=== PATIENT | male | born 1970 ===

== ENCOUNTER → 2017-12-06 | Outpatient (REF) | payer BC ==
[2017-12-06 13:33] LABS: ESTIMATED AVERAGE GLUCOSE 120 MG/DL (60-110); HEMOGLOBIN A1c 5.8 %
[2017-12-06 13:48] LABS: TOTAL 25(OH) VITAMIN D 9.7 NG/ML (30.0-100.0)
[2017-12-06 13:49] LABS: ALBUMIN/GLOBULIN RATIO 1.11 (1.00-1.93); ALKALINE PHOSPHATASE 58 U/L (45-117); ALT/SGPT 22 U/L (12-78); ANION GAP 7 MEQ/L (8-16); AST/SGOT 17 U/L (7-37); BILIRUBIN,TOTAL 0.5 MG/DL (0.2-1.0); BLOOD UREA NITROGEN 15 MG/DL (7-18); CARBON DIOXIDE LEVEL 29 MEQ/L (21-32); CHLORIDE LEVEL 105 MEQ/L (98-107); CHOLESTEROL LEVEL 244 MG/DL (<200); CHOLESTEROL RISK RATIO 3.128 (<5); CREATININE FOR GFR 0.86 MG/DL (0.70-1.30); GLOMERULAR FILTRATION RATE > 60.0 (>60); GLUCOSE, FASTING 108 MG/DL (70-100); HDL CHOLESTEROL 78 MG/DL (>40); NON-HDL-C 166 MG/DL; SODIUM LEVEL 141 MEQ/L (136-145); TOTAL PROTEIN 7.6 GM/DL (6.4-8.2); TRIGLYCERIDES LEVEL 145 MG/DL (<150)
== END ==
LOC: M LAB REF 12:23
DX: Z13.9 Encounter for screening, unspecified (principal)

== ENCOUNTER → 2018-06-14 | Outpatient (REF) | payer BC ==
[2018-06-14 19:30] LABS: FREE T4 0.67 NG/DL (0.76-1.46)
== END ==
LOC: M LAB REF 17:55
DX: E03.9 Hypothyroidism, unspecified (principal)

== ENCOUNTER → 2019-01-05 | Outpatient (CLI) | payer BC ==
[2019-01-05 13:49] LABS: FREE T4 0.3 NG/DL (0.76-1.46)
== END ==
LOC: M WUC 09:11
PROVIDERS: ATTEND Internal Medicine Endocrinology, Diabetes & Metabolism
DX: E03.9 Hypothyroidism, unspecified (principal)